=== PATIENT | male | born 1935 | race Caucasian/White ===

== ENCOUNTER 2022-05-23 14:00 | Emergency (ER) | payer OTHER ==
[~2022-05-23] VITALS: Ht 157.5 cm; Wt 68.0 kg
--- NOTE | 2022-05-23 14:10 | NUR ---
Pt brought by son , ambulates with walker, pt presents to ER with c/o bump, poss hernia on abdomen for several months, pt denies other symptoms, skin pink and warm, cap refill <3, VSS
[2022-05-23 14:20] VITALS: BP_SYST 130
--- NOTE | 2022-05-23 14:30 | NUR ---
Dr Champagne evaluating patient at bedside
[2022-05-23 14:53] VITALS: BP_SYST 130
--- NOTE | 2022-05-23 15:23 | NUR ---
Patient given written and verbal discharge instructions and verbalizes understanding. ER MD discussed with patient the results and treatment provided. Patient in stable condition. ID arm band removed. No Rx given. Patient educated on pain management and to follow up with PMD. Pain Scale 0/10. Opportunity for questions provided and answered. Medication side effect fact sheet provided.
== END 2022-05-23 14:53 | disposition home or self-care (01) ==
LOC: SED 14:00
DX: K40.90 Unilateral inguinal hernia, without obstruction or gangrene, not specified as recurrent (principal)
CPT/HCPCS: 99281